=== PATIENT | male | born 1990 | race Caucasian/White ===

== ENCOUNTER 2020-07-23 11:10 | Outpatient (REF) | payer MEDICAID, SELFPAY ==
--- NOTE | 2020-07-23 09:00 | SKI_PTH ---
PATIENT: Bo Dorantes LOC: NCN #:[id number] AGE/SX: 30/M ROOM: RE07/23/[address]: Timothy Gaines : 1990 BED: DIS: 07/23/2020 SPEC #: [id number] RECD: 07/24/20 12:35 STATUS: EMIR REQ #: [id number] ESTEFANI: 07/23/20 09:[address]: Timothy Gaines DEPT: Surgical Specimen RECD BY: Sosa Santoyo ENTERED: 07/24/20 12:35 SP TYPE: SKI OT DR: Miranda Dickinson Tissues: 1 - SKIN BIOPSY(SHAVE/PUNCH) Procedures: SKIN LEVEL 4 Comments: [id number]
[2020-07-23 14:19] LABS: Calculated LDL 87 mg/dL (<100); Cholesterol 165 mg/dL (<200); HDL Cholesterol 71 mg/dL (40-60); Triglyceride 38 mg/dL (<150)
== END 2020-07-23 11:30 ==
LOC: NCHCN 11:10
PROVIDERS: PCP Family Medicine; Visit Provider Family Medicine
DX: D22.5 Melanocytic nevi of trunk (principal)
CPT/HCPCS: 80061; 88305

== ENCOUNTER 2021-05-09 03:16 | Outpatient (CLI) | payer MEDICAID, SELFPAY ==
[2021-05-09 12:29] LABS: Source Nasal/Nares
[2021-05-09 17:09] LABS: COVID-19 PCR Negative (Negative)
== END 2021-05-09 03:17 | disposition home or self-care (01) ==
LOC: LBO 03:17
PROVIDERS: PCP Family Medicine; Visit Provider Urology
DX: Z20.822 Contact with and (suspected) exposure to COVID-19 (principal)
CPT/HCPCS: 87635

== ENCOUNTER 2021-05-12 06:19 | Day surgery (SDC) | payer MEDICAID, SELFPAY ==
[2021-05-12] VITALS (8 sets, daily range): BP systolic 99–119; BP diastolic 48–94; PULSE 47–66; RESP 10–16; TEMP 36.4–36.9; O2SAT 96–100; BMI 21.7
--- NOTE | 2021-05-12 06:50 | W.PM.HP.N ---
Date of service: 05/12/21 Time of Service: 06:50 Assessment and Plan Assessment and plan (1) Spermatocele: Status: Acute Assessment and plan: We will perform right hydrocelectomy and vasectomy at the same time. (2) Encounter for vasectomy: Status: Acute History of Present Illness History of Present Illness Chief Complaint: Right spermatocele Narrative: This is a 31-year-old gentleman who was previously identified as having a right spermatocele. He comes in telling me that over the past year or 2, he believes the lesion may be a bit larger. He still has discomfort from the lesion on a daily basis, but he does not believe the degree of discomfort has worsened. He has not had any overlying skin changes such as redness or bruising. He recently got . He and his partner are not not considering pregnancies, so he is interested in having a vasectomy at the same time as addressing his spermatocele. Review of Systems Narrative: No fevers or chills No vision change or dysphasia No diabetes or thyroid No shortness of breath or sputum production No chest pain or palpitations No nausea, vomiting, hepatitis, ulcers, jaundice, diarrhea or constipation No seizures, strokes or peripheral neuropathy No bleeding disorders or anemia No gout or arthralgia PFSH Medical History (Updated 05/12/21 @ 07:14 by Mike Castellon MD) COVID Surgical History H/O adenoidectomy Social History Smoking/Tobacco Use Status: Never Smoking risk assessment performed?: Yes Alcohol Intake: current Alcohol Intake frequency: a few times a week Alcohol type: beer and wine Substance use type: does not use Details: alcohol:t-7 Do you feel safe at home: Yes Do you feel safe in your relationship?: Yes Meds Allergies and Home Medications Allergies Allergy/AdvReac Type Severity Reaction Status Date / Time No Known Allergies Allergy Verified 05/12/21 06:36 Home Medications Medication Instructions Recorded Confirmed Type Unknown [No Known Home Meds] 04/29/18 05/09/21 History Exam Const General: cooperative and no acute distress Neck Neck: supple Resp Effort & Inspection: normal respiratory effort Auscultation: clear to auscultation bilaterally Cardio Rate: regular rate Rhythm: regular rhythm GI Palpation: soft and no masses Testes: epididymal mass on the right Neuro General: patient alert, patient awake and patient oriented x3
[2021-05-12] MEDS: Lactated Ringers 1,000 ML 80 ML IV (07:05)
--- NOTE | 2021-05-12 07:08 | ANES.PREOP_ITS ---
General Info Date of Service Date Performed: 05/12/21 Height: 6 ft 1 in Weight: 74.7 kg Body Mass Index (BMI): 21.7 Surgical Procedure: Operation Date: 05/12/21 07:40 Proposed Procedures Side Surgeon p Spermatocelectomy Right Mike Castellon MD s Vasectomy Mike Castellon MD Meds Allergies and Home Medications Allergies Allergy/AdvReac Type Severity Reaction Status Date / Time No Known Allergies Allergy Verified 05/12/21 06:36 Home Medication Medication Instructions Recorded Unknown [No Known Home Meds] 04/29/18 Current Visit Medications: Current Medications Generic Name Dose Route Start Last Admin Trade Name Freq PRN Reason Stop Dose Admin Ringer's Solution 1,000 mls @ 80 mls/hr 05/12/21 06:00 IV 06/08/21 23:59 INFUSION AMIRAH Cefazolin Sodium/Dextrose 1 gm in 50 mls @ 100 mls/hr 05/12/21 06:00 Ancef Duplex IVPB 05/12/21 23:59 PREOP AMIRAH IV Miscellaneous Supplies 1 each 05/12/21 06:00 Iv Access IV 06/08/21 23:59 DIRECTED AMIRAH Sodium Chloride 0 ml 05/12/21 06:00 Normal Saline Flush 10 Ml Syr IV 06/08/21 23:59 PRN PRN Sodium Chloride 0 ml 05/12/21 06:00 Normal Saline 10 Ml Vial IJ 06/08/21 23:59 DIRECTED PRN Sterile Water 0 ml 05/12/21 06:00 Water,Injection,Sterile 10 Ml Vial IJ 06/08/21 23:59 DIRECTED PRN PFSH Active Problems Active Problems: Problem Status Onset Code Encounter for vasectomy Z30.2 Spermatocele N43.40 Medical History Medical History (Updated 05/12/21 @ 07:14 by Mike Castellon MD) COVID Surgical History Surgical History H/O adenoidectomy Tobacco Smoking/Tobacco Use Status: Never Alcohol Alcohol Intake: current Alcohol intake frequency: a few times a week Alcohol ty pe: beer and wine Substance Use Substance use type: does not use Details: alcohol:t-7 Vital Signs and Lab Results Vital Signs Most Recent Vital Signs in EMR: Most Recent Vital Signs Temp Pulse Resp BP Pulse Ox 36.9 C 66 16 119/94 H 98 05/12/21 06:42 05/12/21 06:42 05/12/21 06:42 05/12/21 06:42 05/12/21 06:42 Lab Results Blood Type / Crossmatch: No Data to Display Complete Blood Count: No Data to Display Complete Metabolic Panel: No Data to Display Liver Function Panel: No Data to Display Coagulation Panel: No Data to Display Cardiac Panel: No Data to Display Arterial Blood Gas: No Data to Display Venous Blood Gas: No Data to Display Pancreas Panel: No Data to Display Thyroid Panel: No Data to Display Infectious Disease: Coronavirus (COVID-19)(PCR) Negative (Negative) 05/09/21 11:04 05/09/21 Coronavirus 2019 Source Nasal/Nares 05/09/21 11:04 05/09/21 Blood Cultures: No Data to Display Toxicology Panel: No Data to Display Anesthesia Assessment and Plan Anesthesia History Personal History: No History of Anesthesia Complications Family History: No Family History of Anesthesia Complications Exercise Tolerance Exercise Tolerance: Metabolic Equivalents>4 Pertinent Negatives Pertinent Negatives: No Symptoms of GERD, No Major Cardiovascular Symptoms or Complaints and No Major Pulmonary Symptoms or Complaints Cardiac & Pulmonary Exam Cardiac Exam: Normal S1/S2 Heart Sounds Pulmonary Exam: Clear Bilateral Breath Sounds Implantable Cardiac Device Does patient have a Pacemaker or an ICD?: No Airway Exam Known Difficult Airway: No Mallampati Class: 1 Mouth Opening: Normal (> 3cm) Thyromental Distance: Greater than 3 cm Neck Range of Motion: Full ROM Neck Circumference: Normal Teeth Condition: Normal Dentition ASA Classification ASA Score: ASA 2 Emergency Case?: No NPO Status NPO Status: NPO Clears >2 hours, Solids >8 hours Anesthesia Plan Resuscitation Status: Full Code Anesthesia Technique: General Anesthesia Airway Planned: Natural Airway Monitors Used: Standard Monitors
[2021-05-12] MEDS: ceFAZolin 1 GM/50 ML BAG IVPB (07:28)
[2021-05-12] MEDS: Bupivacaine 0.25% Pres-Free 30 ML VIAL (07:50)
[2021-05-12] MEDS: Bacitracin 30 GM TUBE (08:06)
--- NOTE | 2021-05-12 08:09 | W.PM.DSUDISC ---
Discharge Plan Disposition Patient Disposition: HOME Condition: Stable Discharge Details Reason For Visit: spermatocele Attending Provider: Mike Castellon Primary Care Provider: Miranda Dickinson Home Meds and New Rx's Prescriptions: New tramadol 50 mg tablet 50 mg PO Q6H PRNQty: 10 RF: 0 Discharge Instructions Additional Instructions: no lifting over 10 pounds or straining for 48 hours scrotal support and ice pack to scrotum in AM, may shower and remove large dressing - then bacitracin and smaller dressing to incision may use OTC tylenol and ibuprofen as needed for pain followup for wound check in 1 to 2 weeks followup with semen sample in @ 12 weeks - bring sample to office not to lab Activity:: see above Remove Dressings/Wound Care:: 24 hours Shower/Bathe:: 24 hours Diet:: As Tolerated Discharge Orders Discharge Orders: Discharge Order (Routine); Ordered 05/12/21 Ordered By: Mike Castellon DS: Diagnosis Discharge Diagnosis (1) Spermatocele: Status: Acute (2) Encounter for vasectomy: Status: Acute
--- NOTE | 2021-05-12 08:17 | W.PM.OP ---
Date of service: 05/12/21 Time of Service: 08:18 Operative Note Operative Note DATE OF PROCEDURE: 05/12/21 PRE-OP DIAGNOSIS: 1. Right spematocele 2. Elective sterilization POST-OP DIAGNOSIS: same PROCEDURE: 1. Right spermatocelectomy 2. Vasectomy SURGEON: Mike Castellon ANESTHESIA TYPE: Local By Surgeon and General:No Airway Refer to Anesthesia Record ESTIMATED BLOOD LOSS: 10 PATHOLOGY: none sent COMPLICATIONS: None Patient was transported to: PACU Patient's condition: stable Indications: This is a 31-year-old gentleman who has a history of a right sided scrotal mass. On ultrasound and on examination, the mass is consistent with a spermatocele. He has some discomfort associated with the spermatocele and he presents now for an elective spermatocelectomy. He and his are not interested in future pregnancies, so he is agreeable to a vasectomy at the same time. Findings: Small right spermatocele Procedure Description: Was brought to the operating room on 05/12/2021. After successful induction of general anesthesia, he was placed in the supine position. His genitalia was prepped and draped. A right sided scrotal field block was performed using quarter percent Marcaine. A transverse right scrotal incision was made and the incision was extended down through the dartos muscle. The right testis was then delivered through the incision. The tunica vaginalis was identified and was opened anteriorly. This exposed the surface of the testis and the epididymis. A small cystic lesion was found on the head of the epididymis. I was able to dissect this lesion free using sharp and blunt dissection. The cystic lesion was completely excised and the base of the lesion was cauterized using a hand-held Bovie. The tunica vaginalis was reapproximated posterior to the testis using a simple interrupted 3-0 chromic suture. Once the spermatocele had been excised, we turned our attention to the vasectomy. The right vas deferens was palpable and was grasped in an Allis clamp. The vas was then dissected free from its surrounding adventitia and the remainder of the cord structures. A 2 cm section of vas was then excised. Each cut end of the vas was cauterized with hand-held Bovie. The more proximal and of the vas was buried back beneath the adventitia with a simple interrupted 3-0 suture. We were able to palpate the left vas deferens through the incision as well. The left vas deferens was grasped and an Allis clamp and dissected free from its surrounding tissue. The 2 cm section of the left deferens was excised. Each cut end of the vas was cauterized and the more proximal and was buried back beneath the adventitia. Neither of the vasa specimens were sent to pathology. This is the current recommendation of the [place] [employer]. The wounds were inspected for hemostasis and no active bleeding was seen. The testis was delivered back within the right hemiscrotum. Toes muscle was reapproximated using a running 3-0 chromic suture. The scrotal skin was closed with simple interrupted 3-0 chromic sutures. Bacitracin was applied to the wound followed by a fluff dressing and scrotal support.
--- NOTE | 2021-05-12 10:37 | W.ANESPOSTOP ---
Postoperative Evaluation Date, Time and Location Date Performed: 05/12/21 Time Performed: 10:37 Patient Location: Day Surgery Unit Vital Signs Most Recent Imported Vital Signs: Most Recent Vital Signs Temp Pulse Resp BP Pulse Ox 36.4 C L 63 16 106/71 96 05/12/21 09:30 05/12/21 09:30 05/12/21 09:30 05/12/21 09:30 05/12/21 09:30 Pain Score Most Recent Pain Score: Most Recent Pain Score Pain Level 1 05/12/21 10:30 Assessment Mental Status: Awake (Alert & Oriented to Patient Baseline) Airway and Respiratory Function: Patent airway with normal (patient baseline) respiratory exam Cardiovascular Function: Hemodynamically Stable Hydration Status: Adequately Hydrated Nausea & Vomiting: No Nausea or Vomiting Pain: Pain is tolerable per patient Peripheral Nerve Block: Patient did not receive a nerve block
== END 2021-05-12 10:54 | disposition home or self-care (01) ==
PROVIDERS: PCP Family Medicine; Visit Provider Urology
PROC: (CPT 54840; principal; 2021-05-12 07:30)
PROC: (CPT 55250; 2021-05-12 07:30)
DX: N43.41 Spermatocele of epididymis, single (principal); Z30.2 Encounter for sterilization
CPT/HCPCS: 54840; 55250; J0690; J1885; J2250; J2405; J2704

== ENCOUNTER 2024-06-28 14:49 | Emergency (ER) | payer MEDICAID, SELFPAY ==
[2024-06-28 14:54] VITALS: BP 143/74; PULSE 102; RESP 18; TEMP 36.2; O2SAT 98
[2024-06-28] MEDS: Lidocaine 5% Patch 1 PATCH TP (15:25)
[2024-06-28] MEDS: Ketorolac 15 MG/ML VIAL IM (15:25)
[2024-06-28] MEDS: Acetaminophen 500 MG TAB 1000 MG PO (15:25)
[2024-06-28] MEDS: Cyclobenzaprine 10 MG TAB PO (15:25)
--- NOTE | 2024-06-28 15:38 | ED.GENADUL_ITS ---
Discharge Plan Disposition Patient Disposition: Home Condition: Stable Discharge Details Clinical Impression: Low back pain radiating to right leg Primary Care Provider: Timothy Gaines ED Provider: Lanie Lemos Home Meds and New Rx's Prescriptions: No Action No Known Home Meds Discharge Instructions Instructions: Low Back Pain ED Additional Instructions: You were seen in the emergency department today for evaluation of low back pain with radiation into your hip and weakness/giving out of your right leg. In our department you had a full physical examination performed that was reassuring, and did not have any warning signs that would require us to admit you to the hospital. We did trial numerous medications, including Tylenol, ibuprofen, lidocaine patches, and a muscle relaxer called Flexeril. Unfortunately, we do not have the ability to obtain an MRI of the lower back in the emergency department, and if your pain persists your primary care may order you an outpatient MRI to better evaluate this complaint. I do recommend that you continue to take Tylenol and ibuprofen, alternating these medications every 3 hours so that you have consistent pain management throughout the day. You can use lidocaine patches or gel, and I have provided you with a short course of Flexeril to be used as needed at nighttime. It is safe to cut this medication in half of the dose feels too high. Reasons to return to the emergency department include fevers and chills, weakening or loss of sensation of the right leg, incontinence of bowel or bladder, or any other symptoms that cause you concern. Thank you for allowing us to be part of your care. Discharge Data Discharge Date/Time-TO BE ENTERED AT DEPARTURE: 06/28/24 16:28 HPI General Mode of arrival: ambulatory . Date/Time Provider Initiated Documentation: 06/28/24 15:05 . Limitations to Documentation: no limitations . Information obtained by: patient, family and old records reviewed . HPI Narrative: HPI: This is a 34-year-old male patient presenting for evaluation of back injury. The patient reports that a week ago he was lifting some boxes, and had some soreness in his lower back. This has persisted over the last week, is intermittently worse especially with movement, standing, and has not responded to ibuprofen use in the outpatient environment. Today he states he was attempting to ambulate and he felt like his right leg was giving out under him and he felt generally weak in this area. The patient has not have any sensory changes, has not sustained any injury or trauma, denies incontinence of bowel or bladder or urinary retention. Denies saddle anesthesia, has not had fever. The patient has had mild back problems in the past but has never undergone back surgery. Exam: Gen: Awake and alert, appears uncomfortable HEENT: Non-icteric sclera Neck: Supple Lungs: No apparent respiratory distress, normal respiratory effort. CV: Appears well perfused Abdomen: Non-distended MSK: The patient has no tenderness to palpation of the C/T/L-spine, paraspinal muscles are nontender, patient does have some tenderness in the area around the SI joint without overlying skin changes or severe worsening to palpation. The patient has full passive range of motion of the legs, straight leg raise negative bilaterally. The patient has difficulty with flexion at the hip due to pain bilaterally, is able to activate these muscles and lift his legs up against gravity spontaneously during this provider's examination. 5 out of 5 strength with plantar and dorsiflexion. Skin: Visualized skin without rashes, cyanosis. Neuro: No obvious focal deficits or facial asymmetry except the bilateral hip flexor weakness/pain as noted above. Speaks in full, clear sentences. Psych: Appropriate for situation. MDM: This is a 34-year-old male patient presenting for evaluation of low back pain. Differential includes but is not limited to muscular sprain/strain sacroiliitis, sciatica, lumbar disc disease. The patient's weakness is concerning, though on my physical examination he does have preserved strength that is in fact limited by pain, and he has no other concerning symptoms or risk factors for cauda equina. The patient is without risk factors or historical symptoms to suggest osteomyelitis or discitis, spinal epidural abscess, hem atoma. At this time there is no indication for laboratory studies, I did discuss advanced imaging with this patient's family, as x-ray imaging would be unlikely to reveal any abnormalities which account for the symptoms (no red flags or B symptoms to suggest occult fracture or neoplasm), and MRI imaging is neither indicated in first presentation of low back pain in a young person nor is it available at this facility today. This could be completed as an outpatient and I recommended that they call their primary care provider to schedule this imaging study if his symptoms do not improve with conservative management. ED Course: I provided the patient with a dose of Tylenol, Toradol, lidocaine, and Flexeril. The patient reports that these medications did improve his pain and symptoms, though he still feels uncomfortable and weak. On my reassessment, he remains able to flex at the hip, though he feels weak when he does so and has reproduction of pain. He remains without sensory deficits and I remain with a low concern for spinal cord compression emergencies. I did offer CT scan to this patient to evaluate for evidence of spinal nerve root compression or other abnormalities, which at this time he declines and I feel that this is reasonable given his history and physical examination. I did offer this patient oral narcotics for ongoing pain management and at this time he would like to trial an outpatient regimen that avoids this medication. For this reason I provided them with a small bottle of Flexeril to be used at nighttime for muscle relaxation. I detailed conservative management of back pain including Tylenol, ibuprofen, Lidoderm, and recommended close outpatient follow-up for reassessment. At this time, the patient has had a full medical evaluation and is safe for discharge to home. They are hemodynamically stable, ambulatory, and tolerating PO. They are understanding of the follow-up plan and return precautions. They left our facility without incident. Lanie Lemos MD Related Data Home Medications ?Medication ?Instructions ?Recorded ?Confirmed Unknown [No Known Home Meds] 05/27/21 06/28/24 Allergies Allergy/AdvReac Type Severity Reaction Status Date / Time No Known Allergies Allergy Verified 06/28/24 14:57 General Stated Complaint: Nk/Back Pain CHARITY: 4 Course Vital Signs Vital signs: Vital Signs Temperature 36.2 C L 06/28/24 14:54 Pulse 102 H 06/28/24 14:54 Respiratory Rate 18 06/28/24 14:54 Blood Pressure 143/74 H 06/28/24 14:54 Pulse Oximetry 98 06/28/24 14:54 Temperature 36.2 C L 06/28/24 14:54 Temperature Source Temporal Artery Scan 06/28/24 14:54 Pulse 102 H 06/28/24 14:54 Respiratory Rate 18 06/28/24 14:54 Blood Pressure 143/74 H 06/28/24 14:54 Blood Pressure Position Sitting 06/28/24 14:54 Pulse Oximetry 98 06/28/24 14:54 Oxygen Delivery Method Room Air 06/28/24 14:54 Oxygen Flow Rate 0 06/28/24 14:54 Pain Level 4 06/28/24 15:15 Medical Decision Making Quality:SDOH Health Related Social Needs: No Data to Display PFSH All Active Problems (Updated 06/28/24 @ 16:21 by Lanie Lemos MD) Low back pain radiating to right leg (Acute) Encounter for vasectomy (Acute) Spermatocele (Acute) Medical History (Updated 06/28/24 @ 16:21 by Lanie Lemos MD) COVID Surgical History H/O adenoidectomy Social History Smoking/Tobacco Use Status: Never Smoking risk assessment performed?: Yes Alcohol Intake: current Alcohol Intake frequency: a few times a week Alcohol type: beer and wine Substance use type: does not use Do you feel safe at home: Yes Do you feel safe in your relationship?: Yes
--- OUTSIDE RECORDS SUMMARY | 2024-06-28 15:47 | XMS_ITS | Clinical Summary ---
Author Organization [facility] Address [address] [place] [address] Care Team Providers Care Seo Analyst Name Role Phone Unknown, Provider Primary Care Provider Unava ilable Social History Tobacco Use Types Packs/Day Years Used Date Smoking Tobacco: Never Assessed Interpersonal Safety Answer Date Record ed Physically Hurt Never 07/24/2020 Verbally Threaten Not on file 07/24/2020 Sex and Gender Information Value Date Recorded Sex Assigned at Not on file Legal Sex Male 15:37 EST Gender Identity Not on file Sexual Orientation Not on file Plan of Treatment Health Maintenance Due Date Last Done Comments Hepatitis C Screen 1990 Hepatitis B Vaccine (1 of 3 - 19+ 3-dose series) 02/16 COVID-19 Vaccine (2023- season) 2024 Insurance MEDICAID [place] [place] [address] [place] [address] Care Teams Seo Analyst Relationship Specialty Start Date End Date Unknown, Provider, PCP - General 07/05/20
--- OUTSIDE RECORDS SUMMARY | 2024-06-28 15:47 | XMS_ITS | Encounter Summary ---
Author Organization [facility] Address [address] [place] [address] Care Team Providers Care Salt Maker Name Role Phone Unknown, Provider Primary Care Provider Unava ilable Encounter Details Date Type Department Care Team (Late st Contact Info) Description 07/24/2020 Lab Requisition [facility] Pathology & Laboratory Medicine - [address] [address] Timothy Gaines MD [address] [place] [address] [phone] Encounter for other general examination Social History Tobacco Use Types Packs/Day Years Used Date Smoking Tobacco: Never Assessed Interpersonal Safety Answer Date Record ed Physically Hurt Never 07/24/2020 Verbally Threaten Not on file 07/24/2020 Sex and Gender Information Value Date Recorded Sex Assigned at Not on file Legal Sex Male 15:37 EST Gender Identity Not on file Sexual Orientation Not on file documented as of this encounter Plan of Treatment Not on file documented as of this encounter Procedures Procedure Name Priority Date/Time Associated Diagnosis Comments SURGICAL PATHOLOGY Today 07/23/2020 9: 00 EST Encounter for other general examination documented in this encounter Results * SURGICAL PATHOLOGY (07/23/2020 9:00 EST) Final Diagnosis A. SKIN OF BACK, MID, EXCISION: - Melanocytic nevus, compound type. - Margins negative for melanocytic nevus. 07/25/2020 16:54 EST [facility] Attestation By the signature below, the attending physician certifies that they have 1) personally conducted a gross and/or microscopic examination of the described specimen(s), and/or personally interpreted the results of laboratory testing of the described specimen(s), and 2) personally rendered or confirmed the above diagnosis. 07/25/2020 16:54 [facility] at 1654 Microscopic Description Sections are of a pedunculated papule. The epidermis is hyperplastic with accentuation of the rete architecture and formation of horn pseudocysts. The papule is formed by a circumscribed and symmetric compound proliferation of melanocytes. The junctional component consists primarily of nests. The nests are generally small but vary to a mild degree in shape. The melanocytes are slightly enlarged but have relatively uniform round-oval nuclei and a moderate amount of cytoplasm containing melanin pigment. The dermal component consists of nests, cords, and strands of similar melanocytes showing commission associate maturation with descent. 07/25/2020 16:54 [facility] Clinical History Congenital nevus mid back; excision rostral end nicked 07/25/2020 16:54 [facility] Gross Description A. Received in formalin labelled with proper patient identification (initials M, D) and nevus-midback is an unoriented elliptical skin excision (1.6 x 1.1 cm and is excised to the depth of 0.2 cm). There is a dome-shaped reece crusted lesion (0.6 x 0.5 x 0.3 cm). The surgical margin is inked blue. The specimen is serially sectioned and submitted entirely as tips, reverse en face, in A1 and central sections in A 2-A3. LESLEY ALONSO(ASCP) 07/24/2020 16:17 07/25/2020 16:54 [facility] Performing Lab [facility] 07/25/2020 16:54 [facility] Scanned Images 07/25/2020 16:54 [facility] Tissue TISSUE SPECIMEN FROM SKIN / Unknown 07/23/2020 9:00 EST 07/24/2020 15:39 EST us Timothy Gaines MD PATHOLOGY ORDERABLES Final Resul t [facility] [address] [place] [address] documented in this encounter Visit Diagnoses Diagnosis Encounter for other general examination documented in this encounter Care Teams Salt Maker Relationship Specialty Start Date End Date Unknown, Provider, PCP - General 07/05/20 documented as of this encounter
--- OUTSIDE RECORDS SUMMARY | 2024-06-28 15:47 | XMS_ITS | Referral Summary ---
Author Organization [facility] Address [address] [place] [address] Care Team Providers Care Route Sales Trainee Name Role Phone Unknown, Provider Primary Care [...] Orientation Not on file Plan of Treatment Not on file Insurance MEDICAID [place] [place] [address] [place] [address] Care Teams Route Sales Trainee Relationship Specialty Start Date End Date Unknown, Provider, PCP - General 07/05/20
[2024-06-28] MEDS: Cyclobenzaprine 10 MG TAB, 3 TABS/BTL PO (16:25)
[2024-06-28 16:26] VITALS: BP 120/69; PULSE 60; RESP 18; O2SAT 98
== END 2024-06-28 16:28 | disposition home or self-care (01) ==
PROVIDERS: Emergency Provider Emergency Medicine; PCP Family Medicine
DX: M54.50 Low back pain, unspecified (principal); M79.604 Pain in right leg; X50.0XXA Overexertion from strenuous movement or load, initial encounter
CPT/HCPCS: 96372; 99284; 99283; J1885